=== PATIENT | male | born 2000 | race African-American/Black ===

== ENCOUNTER 2019-06-17 04:22 | Emergency (ER) | payer OTHER ==
[~2019-06-17] VITALS: Ht 170.2 cm; Wt 72.6 kg
[~2019-06-17 04:22] MED LIST: BENADRYL25 MG PO
[2019-06-17 05:05] VITALS: BP 131/77
== END 2019-06-17 05:05 | disposition home or self-care (01) ==
LOC: M.ERS 04:22
DX: R51 Headache (principal); R11.2 Nausea with vomiting, unspecified

== ENCOUNTER 2019-08-02 07:11 | Emergency (ER) | payer OTHER ==
[~2019-08-02] VITALS: Ht 167.6 cm; Wt 72.6 kg
[2019-08-02 07:50] VITALS: BP 124/74
== END 2019-08-02 07:50 | disposition home or self-care (01) ==
LOC: M.ERS 07:11
DX: B34.9 Viral infection, unspecified (principal); J02.9 Acute pharyngitis, unspecified; R51 Headache

== ENCOUNTER 2020-10-22 11:13 | Emergency (ER) | payer OTHER ==
[~2020-10-22] VITALS: Ht 167.6 cm; Wt 81.7 kg
[2020-10-22 11:59] VITALS: BP 138/86
== END 2020-10-22 12:00 | disposition home or self-care (01) ==
LOC: M.ERS 11:13
DX: S62.522D Displaced fracture of distal phalanx of left thumb, subsequent encounter for fracture with routine healing (principal); Z48.02 Encounter for removal of sutures; W22.8XXD Striking against or struck by other objects, subsequent encounter